=== PATIENT | female | born 1995 | race Caucasian/White ===

== ENCOUNTER 2023-09-21 17:34 | Inpatient (IN) ==
[2023-09-21] MEDS ORDERED: SODIUM CHLORIDE 0.9% 1,000 ML IV SCH (18:00)
[2023-09-21 18:06] LABS: Basophils # (auto) 0.03 K/uL (0.00-0.20); Basophils % (auto) 0.3 %; Eosinophils # (auto) 0.01 K/uL (0.00-0.50); Eosinophils % (auto) 0.1 %; Hemoglobin 14.4 g/dl (12.0-16.0); Immature Granulocytes # (auto) 0.03 K/uL (0.01-0.20); Immature Granulocytes % (auto) 0.3 %; Lymphocytes # (auto) 0.91 K/uL (1.20-3.40); Lymphocytes % (auto) 10.3 %; Mean Corpuscular Hemoglobin 28.6 pg (25.0-34.0); Mean Corpuscular Hgb Conc 34.3 g/dL (32.0-36.0); Mean Corpuscular Volume 83.5 fL (80.0-100.0); Mean Platelet Volume 10.4 fL (9.4-12.4); Monocytes # (auto) 0.31 K/uL (0.11-0.59); Monocytes % (auto) 3.5 %; Neutrophils # (auto) 7.51 K/uL (1.40-6.50); Neutrophils % (auto) 85.5 %; Platelet Count 229 K/uL (130-400); RDW Coefficient of Variation 12.5 % (11.5-14.5); RDW Standard Deviation 37.7 fL (36.4-46.3); Red Blood Count 5.03 M/uL (4.20-5.40)
[2023-09-21 18:22] LABS: Acetaminophen < 3 ug/ml (10-30); Salicylate < 3.0 mg/dl (3.0-30)
[2023-09-21 18:23] LABS: Albumin Globulin Ratio 1.7 (0.9-2); Albumin Level 4.7 gm/dl (3.4-5.0); BUN Creatinine Ratio 14.8 (10-20); Bilirubin,Total 0.3 mg/dl (0.2-1.0); Calcium 9.4 mg/dl (8.6-10.3); Creatinine Clr Calc Pharmacy 135.4 ml/min; Est GFR (Non-African American) 97.5 ml/min; Globulin 2.7 gm/dl (2.5-4.0); Potassium 3.6 mmol/L (3.5-5.1); Total Protein 7.4 gm/dl (6.0-8.3)
[2023-09-21] MEDS ORDERED: SODIUM CHLORIDE 0.9% 1,000 ML IV ONE (18:24)
[2023-09-21 18:37] LABS: Thyroid Stimulating Hormone 4.255 uIu/ml (0.300-4.500)
[2023-09-21 18:48] LABS: Appearance Urine Cloudy (Clear); Bacteria Urine Automated Negative (Negative); Bilirubin Urine Negative (Negative); Blood Urine 3+ (Negative); Color Urine Dark Yellow; Epithelial Cell Urine Auto >30 /lpf (0-5); Glucose Urine UA Negative (Negative); Ketones Urine Trace (Negative); Leukocyte Esterase Urine Negative (Negative); Nitrite Urine Negative (Negative); Protein Urine Trace (Negative); RBC Urine Automated 0-4 /hpf (0-4); Specific Gravity Urine 1.026 (1.000-1.030); Urobilinogen Urine Negative (Negative)
[2023-09-21 18:49] LABS: Magnesium 1.7 mg/dl (1.7-2.4)
[2023-09-21] MEDS ORDERED: LORazepam 1 MG/1 ML SYR ED Inj Use IV STA (19:17)
[2023-09-21 19:20] LABS: Pregnancy Test, Urine Negative (Negative)
[2023-09-21 19:26] LABS: Amphetamines+Metham, Urine Pos (Neg); Barbiturates, Urine Neg (Neg); Benzodiazepine, Urine Neg (Neg); Cocaine, Urine Neg (Neg); MDMA (Ecstacy), Urine Pos (Neg); Marijuana, Urine Pos (Neg); Methadone, Urine Neg (Neg); Opiate, Urine Neg (Neg); Phencyclidine, Urine Neg (Neg)
[2023-09-21 19:45] LABS: Cast Urine Automated 0 /lpf (0-5)
--- NOTE | 2023-09-21 20:45 | CT Scan Report ---
Exam(s): CT HEAD Without Contrast EXAM: CT Head Without Intravenous Contrast CLINICAL HISTORY: Reason for exam: seizure. TECHNIQUE: Axial computed tomography images of the head/brain without intravenous contrast. CTDI is 38.31 mGy and DLP is 546.36 mGy-cm. Automated exposure control was utilized for the study. A dose lowering technique was utilized adhering to the principles of ALARA. COMPARISON: None FINDINGS: Brain: No acute infarct or hemorrhage. No extra-axial fluid collection. No mass effect or midline shift. Ventricles and sulci: Normal. No ventriculomegaly or intraventricular hemorrhage. Bones: Normal. No bony lesion or acute fracture. Subcutaneous tissues: Normal. Sinuses: Normal. No air-fluid levels or mucosal thickening. Mastoid air cells: Normal. Orbits: Grossly unremarkable. IMPRESSION: No acute intracranial abnormality. Electronically signed by: Carmen Noriega M.D. 09/21/23 20:44 PM
--- NOTE | 2023-09-21 21:46 | Emergency Department Note ---
History of Present Illness General Chief complaint: Overdose (Intentional) Time Seen by Provider: 09/21/23 17:45 History of Present Illness Provider complaint: Overdose suicide attempt Onset (ago): hour(s) 7 28-year-old female presents emergency department after an overdose and attempted suicide. Patient reports that at 10:30 AM she took 23 tablets of her Wellbutrin 300 mg. Patient reports she had nausea and vomiting. No hematemesis coffee- ground emesis or bilious vomiting. Patient reports approximately 2 hours ago she had a seizure reports the last approximate 1 minute. Patient has a history of anxiety and depression. She denies any drug use. She denies any chance of . Home Medications Medication Instructions Recorded Confirmed Type venlafaxine 150 mg 150 mg PO QAM #30 caps 06/23/23 08/12/23 Rx capsule,extended release 24 hr (Effexor XR) bupropion HCl 300 mg 24 hr tablet, 300 mg PO QAM #30 tabs 08/10/23 08/12/23 Rx extended release (Wellbutrin XL) Allergies Allergy/AdvReac Type Severity Reaction Status Date / Time No Known Allergies Allergy Verified 08/12/23 10:52 Past Med/Surg History Medical History Strain of muscle, fascia and tendon of lower back, initial encounter Open wnd knee/leg/ankle Surgical History No pertinent past surgical history Family History Sister Anxiety Bipolar disorder Grandmother Breast cancer Mother Cervical cancer Denies family history of Ovarian cancer Prostate cancer Myocardial infarction Colorectal cancer Social History Smoking Status: Current every day smoker Tobacco Type: Cigarettes Age Started Using Tobacco: 11; Second Hand Exposure: Yes; Do You Dip or Chew Tobacco: No; Hx Alcohol Use: Yes Hx Substance Use: Yes Non-Prescribed Medications: Marijuana Preferred Language: Cuban Communication Ability: Effective 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 marital status: Current Living Situation: Spouse 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 How many Children do You have: 0 Feels Safe at Home: Yes Childhood Exposure to Second-Hand Smoke: Yes Diet: regular caffeine: Yes (coffee, tea, and soda ) Dental Care, Regularly: No Physical Activity Frequency: 1-2 Times per Week Seatbelt Use: always Sunscreen Use: No Physical Exam Vital Signs Vital Signs - 24 hr 09/21/23 17:20 09/21/23 17:20 09/21/23 17:44 Temperature 36.6 C Temperature Source Oral Pulse Rate 96 H 108 H Pulse Rhythm Regular Pulse Strength Normal Respiratory Rate 20 Respiratory Effort / Characteristics Non-Labored Spontaneous Respiratory Depth Normal Respiratory Pattern Regular Blood Pressure 131/92 Blood Pressure Mean 105 Blood Pressure Position Sitting Pulse Oximetry 94 Oxygen Delivery Method Room Air Room Air Sepsis Recent Fever Within 48 Hours No Sepsis New/Unexplained Change in Mental Status No Sepsis Action Taken by Nursing No Action Required 09/21/23 19:00 Temperature Temperature Source Pulse Rate 86 Pulse Rhythm Pulse Strength Respiratory Rate 16 Respiratory Effort / Characteristics Respiratory Depth Respiratory Pattern Blood Pressure 122/79 Blood Pressure Mean 93 Blood Pressure Position Pulse Oximetry 95 Oxygen Delivery Method Room Air Sepsis Recent Fever Within 48 Hours Sepsis New/Unexplained Change in Mental Status Sepsis Action Taken by Nursing Physical Exam GENERAL: oriented to person, place, and time. appears well-developed and well- nourished. HENT: Exam performed. - Head: Normocephalic and atraumatic. EYES: Conjunctivae and EOM are normal. Right eye exhibits no discharge. Left eye exhibits no discharge. No scleral icterus. NECK: Normal range of motion. Neck supple. No JVD present. CV: Normal rate, regular rhythm, normal heart sounds and intact distal pulses. There is no peripheral edema. Palpable radial pulses bue. PULM/CHEST: Effort normal and breath sounds normal. No respiratory distress. No stridor. no wheezes. no rales. ABD: The abdomen is soft. There is no tenderness. NEURO: Motor and sensation grossly intact. SKIN: Skin is warm and dry. He is not diaphoretic. PSYCH: Bizarre affect depressed suicidal Course Course 1744: The patient was evaluated in room A8. A complete history and physical exam was performed Cardiac monitoring: An order was placed for continuous cardiac monitoring. The monitor shows a rate of 90 with sinus rhythm interpreted by me 1821: Spoke with poison control. They recommend adding a CPK and a magnesium. Patient recommended admitting the patient overnight. They state no Keppra but benzos as needed. 2109: Patient reported to the nursing staff that she punched a wall prior to arrival is having right hand pain. X-ray ordered. 2142: Vital signs stable. Patient CT head within normal limits. Labs within normal limits. X-ray within normal limits no acute fracture or dislocation. Patient will be admitted to the [facility] team. Discussed case with VASHTI DE JESUS for Dr. Hurt. Administered Medications Discontinued Medications Sodium Chloride (Nss) 1,000 mls @ 999 mls/hr IV .Q1H1M LEIDY Stop: 09/21/23 19:00 Last Admin: 09/21/23 20:32 Dose: 999 mls/hr Documented By: CRISTI Sodium Chloride (Nss) 1,000 mls @ 999 mls/hr IV .Q1H1M ONE Stop: 09/21/23 19:24 Last Infusion: 09/21/23 20:32 Dose: Infused Documented By: Admin: 09/21/23 19:11 Dose: 999 mls/hr Documented By: CLAUDIO Lorazepam (Lorazepam 1 Mg/1 Ml Syr Ed Inj Use) 0.5 mg IV ONE STA Stop: 09/21/23 19:18 Last Admin: 09/21/23 19:22 Dose: 0.5 mg Documented By: CLAUDIO Medical Decision Making Laboratory Data Attestation: I reviewed the patient's lab results. 09/21/23 17:46 09/21/23 17:46 Lab Results 09/21/23 09/21/23 09/21/23 Range/Units 17:46 19:08 Unknown WBC 8.80 (4.8-10.8) K/ul RBC 5.03 (4.20-5.40) M/uL Hgb 14.4 (12.0-16.0) g/dl Hct 42.0 (37.0-47.0) % MCV 83.5 (80.0-100.0) fL MCH 28.6 (25.0-34.0) pg MCHC 34.3 (32.0-36.0) g/dL RDW Std Deviation 37.7 (36.4-46.3) fL RDW Coeff of Maddy 12.5 (11.5-14.5) % Plt Count 229 (130-400) K/uL MPV 10.4 (9.4-12.4) fL Immature Gran % (Auto) 0.3 % Neut % (Auto) 85.5 % Lymph % (Auto) 10.3 % [place] % (Auto) 3.5 % Eos % (Auto) 0.1 % Baso % (Auto) 0.3 % Neut # (Auto) 7.51 H (1.40-6.50) K/uL Lymph # (Auto) 0.91 L (1.20-3.40) K/uL [place] # (Auto) 0.31 (0.11-0.59) K/uL Eos # (Auto) 0.01 (0.00-0.50) K/uL Baso # (Auto) 0.03 (0.00-0.20) K/uL Immature Gran # (Auto) 0.03 (0.01-0.20) K/uL Sodium 140 (136-145) mmol/L Potassium 3.6 (3.5-5.1) mmol/L Chloride 106 (98-107) mmol/L Carbon Dioxide 25 (21-32) mmol/L Anion Gap 9 (3-11) BUN 12 (6-23) mg/dl Creatinine 0.81 (0.6-1.2) mg/dl Est Cr Clr Drug Dosing 135.4 ml/min Est GFR ( Amer) 113.0 ml/min Est GFR (Non-Af Amer) 97.5 ml/min BUN/Creatinine Ratio 14.8 (10-20) Glucose 166 H (70-99(Fasting)) mg/dl Calcium 9.4 (8.6-10.3) mg/dl Magnesium 1.7 (1.7-2.4) mg/dl Total Bilirubin 0.3 (0.2-1.0) mg/dl AST 14 (13-39) U/L ALT 11 (7-52) U/L Alkaline Phosphatase 49 (34-104) U/L Total Creatine Kinase 61 (26-192) U/L Total Protein 7.4 (6.0-8.3) gm/dl Albumin 4.7 (3.4-5.0) gm/dl Globulin 2.7 (2.5-4.0) gm/dl Albumin/Globulin Ratio 1.7 (0.9-2) TSH 4.255 (0.300-4.500) uIu/ml Urine Color Dark Yellow Urine Appearance Cloudy A (Clear) Urine pH 5.0 (4.5-7.5) Ur Specific [place] 1.026 (1.000-1.030) Urine Protein Trace H (Negative) Urine Glucose (UA) Negative (Negative) Urine Ketones Trace H (Negative) Urine Blood 3+ H (Negative) Urine Nitrite Negative (Negative) Urine Bilirubin Negative (Negative) Urine Urobilinogen Negative (Negative) Ur Leukocyte Esterase Negative (Negative) Urine WBC (Auto) 1-5 (0-5) /hpf Urine RBC (Auto) 0-4 (0-4) /hpf U Hyaline Cast (Auto) 0 (0-5) /lpf U Epithel Cells (Auto) >30 H (0-5) /lpf Urine Bacteria (Auto) Negative (Negative) Urine Yeast Not Reportable Urine Test Negative (Negative) Salicylates < 3.0 L (3.0-30) mg/dl Urine Opiates Screen Neg (Neg) Ur Methadone, Qual Neg (Neg) Acetaminophen < 3 L (10-30) ug/ml Urine Barbiturates Neg (Neg) Ur Phencyclidine (PCP) Neg (Neg) U Amphetamin/Meth Scrn Pos H (Neg) MDMA (Ecstasy) Screen Pos H (Neg) U Benzodiazepines Scrn Neg (Neg) Ur Cocaine Metabolite Neg (Neg) U Marijuana (THC) Screen Pos H (Neg) Ethyl Alcohol mg/dL < 10.0 (<10.0) mg/dl SARS-CoV-2, RNA, NAAT NEGATIVE (NEGATIVE) Imaging Data Attestation: I personally reviewed and interpreted this imaging study as follows: My Impression: Right hand x-ray: No acute fracture or dislocation Radiologist's Impression: Head CT 09/21/23 18:19 Exam(s): CT HEAD Without Contrast EXAM: CT Head Without Intravenous Contrast CLINICAL HISTORY: Reason for exam: seizure. TECHNIQUE: Axial computed tomography images of the head/brain without intravenous contrast. CTDI is 38.31 mGy and DLP is 546.36 mGy-cm. Automated exposure control was utilized for the study. A dose lowering technique was utilized adhering to the principles of ALARA. COMPARISON: None FINDINGS: Brain: No acute infarct or hemorrhage. No extra-axial fluid collection. No mass effect or midline shift. Ventricles and sulci: Normal. No ventriculomegaly or intraventricular hemorrhage. Bones: Normal. No bony lesion or acute fracture. Subcutaneous tissues: Normal. Sinuses: Normal. No air-fluid levels or mucosal thickening. Mastoid air cells: Normal. Orbits: Grossly unremarkable. IMPRESSION: No acute intracranial abnormality. Electronically signed by: Carmen Noriega M.D. 09/21/23 20:44 PM ECG Data Attestation: I personally reviewed and interpreted this ECG as follows: Additional Comments: EKG #1 at 1755: Sinus rhythm with a rate of 99. CO 150 QRS [address] elevation or ST depression. EKG #2 at 2110: Sinus rhythm with a rate of 87. CO 152 QRS [address] elevation or ST depression. [facility] Narrative 174: The patient was evaluated in room A8. A complete history and physical exam was performed Cardiac monitoring: An order was placed for continuous cardiac monitoring. The monitor shows a rate of 90 with sinus rhythm interpreted by me 1820: Spoke with poison control. They recommend adding a CPK and a magnesium. Patient recommended admitting the patient overnight. They state no Keppra but benzos as needed. 2109: Patient reported to the nursing staff that she punched a wall prior to arrival is having right hand pain. X-ray ordered. 2142: Vital signs stable. Patient CT head within normal limits. Labs within normal limits. X-ray within normal limits no acute fracture or dislocation. Patient will be admitted to the [facility] Hospitalist team. Discussed case with VASHTI DE JESUS for Dr. Hurt. Impression & Plan Suicide attempt by other psychotropic drug overdose Discharge Plan Visit Data Chief Complaint: Overdose (Intentional) ED Provider: Shamir Leslie Discharge Problem: Suicide attempt by other psychotropic drug overdose Patient Disposition: Admitted As Inpatient Forms Stand Alone Forms: My [facility], Suicide Prevention Resources Prescriptions Prescriptions: No Action venlafaxine [Effexor XR] 150 mg capsule,extended release 24hr 150 mg PO QAM Qty: 30 2RF bupropion HCl [Wellbutrin XL] 300 mg tablet extended release 24 hr 300 mg PO QAM Qty: 30 2RF Referrals Referrals: Amie Cole MD [Primary Care Provider] - Discharge Problem: Suicide attempt by other psychotropic drug overdose Qualifiers: Encounter type: initial encounter Qualified Code(s): T43.8X2A - Poisoning by other psychotropic drugs, intentional self-harm, initial encounter
[2023-09-21] MEDS ORDERED: POTASSIUM CHLORIDE / WTR 10 MEQ/100 ML PLCT IV ONE (22:15)
--- NOTE | 2023-09-21 22:15 | History & Physical Report ---
Date of Service September 21, 2023 Assessment & Plan (1) Intentional overdose: Plan: Suicide attempt; patient intentionally took Wellbutrin 300mg p.o. x 23 tablets (6900mg total) the morning of 09/21 Patient then experienced a seizure at home, and vomited No prior hx of seizures Hx of suicide attempt on trazodone 6 months ago EKG on arrival showed NSR at 87 bpm; QTc 471 Glucose at 166 on arrival Repeat EKGs ordered Head CT NAF Urine test negative Tox screen positive for marijuana and MDMA (expected with Wellbutrin); negative for alcohol, acetaminophen, or salicylates Seizure precautions 1:1 suicide precations Lorazepam 2 mg IV q5m x 2 max doses as needed for seizures lasting >3min Monitor electrolytes; maintain K>4, Mag>2 Magnesium sulfate x 2g given in the ED; K rider 10mEq Psychiatry consulted A.m. CBC, BMP, mag (2) Depression: Plan: Hold Wellbutrin, venlafaxine (3) Tobacco use: Plan: Current everyday tobacco cigarette smoker; 1 PPD Patient also endorses vaping and using marijuana (4) Right hand pain: Plan: Patient reportedly punched a wall following overdose Denies R hand pain at time of admission Right hand x-ray ordered, pending Plan Disposition: Admit to [facility] telemetry Full code Regular diet, safe tray 1:1 observation VTE PPx: Will defer for now History of Present Illness Chief Complaint: Intentional overdose Primary Care Provider: Amie Cole MD Gabrielle is a 28-year-old male with PMH of anxiety, depression, and prior suicide attempt. She presented for an intentional Wellbutrin overdose on 09/21. She reportedly took 23 tablets of her 300 mg Wellbutrin (total 6900 mg) at 1030 on the morning of 09/21 and punched her right hand against a wall. Follow overdose, she reportedly had 1 seizure prior to EMS arrival with 1 episode of emesis. No hx of prior seizures. She reports that she does not know what triggered her to go off this morning; she reports a hx of explosive behaviors, and is not sure what triggered her to take the remainder of her Wellbutrin, and punch her hands against the wall. Patient reports that this is her second suicide attempt; the first was 6 months ago on trazodone, but she reportedly threw up the trazodone after ingestion. She denies ingesting any other drugs. She endorses marijuana use, tobacco cigarette smoking; 1 PPD; and occasionally vaping. She denies alcohol use and recreational drug use. She denies nausea, and pain in her right hand at present. She reports that she urinated once in the ED without difficulty. She reports that she lives with her and 2 dogs. She reports that she used to have firearms in the house, but after speaking with her , and telling him that she is not okay, her brought the firearms to his parent's house. Vital stable at time of admission. ED course: Lorazepam 0.5 mg IV NSS 1000 mL bolus x 2 ROS: Patient endorses nausea (which has resolved). Patient denies headache, fevers, chills, night sweats, chest pain, SOB, abdominal pain, urinary s/s, or numbness/tingling going down her legs. Allergies Allergy/AdvReac Type Severity Reaction Status Date / Time No Known Allergies Allergy Verified 08/12/23 10:52 Home Medications Medication Instructions Recorded Confirmed Type venlafaxine 150 mg 150 mg PO QAM #30 caps 06/23/23 09/21/23 Rx capsule,extended release 24 hr (Effexor XR) bupropion HCl 300 mg 24 hr tablet, 300 mg PO QAM #30 tabs 08/10/23 09/21/23 Rx extended release (Wellbutrin XL) Past Med/Surg History Medical History Intentional overdose Strain of muscle, fascia and tendon of lower back, initial encounter Open wnd knee/leg/ankle Surgical History No pertinent past surgical history Family History Sister Anxiety Bipolar disorder Grandmother Breast cancer Mother Cervical cancer Denies family history of Ovarian cancer Prostate cancer Myocardial infarction Colorectal cancer Social History Smoking Status: Current every day smoker Tobacco Type: Cigarettes Age Started Using Tobacco: 11; Second Hand Exposure: No; Do You Dip or Chew Tobacco: No; Tobacco Cessation Education Requested by Patient: No Hx Alcohol Use: Yes Alcohol type: hard liquor Hx Substance Use: Yes Non-Prescribed Medications: Marijuana Preferred Language: Bahamian Communication Ability: Effective Manager Willow Required: No Beliefs That Will Affect Care: None marital status: Current Living Situation: Family 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 How many Children do You have: 0 Other Information That Helps Us Care for You: No Feels Safe at Home: Yes Safety Concerns: Feels Safe At This Time Childhood Exposure to Second-Hand Smoke: Yes Diet: regular caffeine: Yes (coffee, tea, and soda ) Dental Care, Regularly: No Physical Activity Frequency: 1-2 Times per Week Seatbelt Use: always Sunscreen Use: No Assistive Devices: None Review of Systems Review of Systems: See HPI above Physical Exam Physical Exam: General: no acute distress; non-toxic appearing; well-nourished; cooperative HEENT: normocephalic, atraumatic; no scleral icterus; PERRLA w/ EOMs intact; moist mucus membrane; vision and hearing grossly intact Neck: supple; no lymphadenopathy; trachea midline Skin: warm, dry without signs of tenting; no cyanosis; no rashes, bruising, lesions, or erythema noted CV: chest wall NTP; RRR; S1/S2 normal; no murmurs/rubs/gallops; pulses intact and symmetric at radial, DP, and PT Lungs: no acute respiratory distress; symmetrical chest wall expansion; clear breath sounds across all lung bryant w/o adventitious sounds; no wheezing ABD: Soft, NTP; BS present; no rebound/guarding; no ascites; no distention; negative CVA tenderness MSK: no tics or fasciculations; no edema noted in the LEs b/l, nonerythematous; right hand mildly swollen at the fifth digit MCP, with mild erythema Neuro: A&Ox3; normal mood and affect; fluent speech; no focal deficits; s ensation grossly intact Results & Data Results & Data Vital Signs (Past 12 Hours) Vital Signs Temp Pulse Resp BP Pulse Ox O2 Del Method 09/21/23 22:00 84 20 98 09/21/23 22:00 123/80 09/21/23 21:59 81 09/21/23 21:45 124/73 09/21/23 21:45 85 19 99 09/21/23 21:30 78 23 100 09/21/23 21:30 122/82 09/21/23 21:15 82 24 99 09/21/23 21:15 139/101 H 09/21/23 21:00 121/74 09/21/23 21:00 84 17 98 09/21/23 20:45 99/66 L 09/21/23 20:45 80 20 99 09/21/23 20:30 125/70 09/21/23 20:30 91 H 17 100 09/21/23 20:15 113/73 09/21/23 20:15 80 20 99 09/21/23 20:05 85 16 09/21/23 20:05 125/73 09/21/23 19:30 88 19 99 09/21/23 19:00 86 16 122/79 95 Room Air 09/21/23 17:44 108 H 09/21/23 17:20 Room Air 09/21/23 17:20 36.6 C 96 H 20 131/92 94 Room Air Laboratory Results Abnormal lab results 09/21/23 09/21/23 Range/Units 17:46 Unknown Neut # (Auto) 7.51 H (1.40-6.50) K/uL Lymph # (Auto) 0.91 L (1.20-3.40) K/uL Glucose 166 H (70-99(Fasting)) mg/dl Urine Appearance Cloudy A (Clear) Urine Protein Trace H (Negative) Urine Ketones Trace H (Negative) Urine Blood 3+ H (Negative) U Epithel Cells (Auto) >30 H (0-5) /lpf Salicylates < 3.0 L (3.0-30) mg/dl Acetaminophen < 3 L (10-30) ug/ml U Amphetamin/Meth Scrn Pos H (Neg) MDMA (Ecstasy) Screen Pos H (Neg) U Marijuana (THC) Screen Pos H (Neg) Diagnostic Findings Head CT 09/21/23 18:19 Exam(s): CT HEAD Without Contrast EXAM: CT Head Without Intravenous Contrast CLINICAL HISTORY: Reason for exam: seizure. TECHNIQUE: Axial computed tomography images of the head/brain without intravenous contrast. CTDI is 38.31 mGy and DLP is 546.36 mGy-cm. Automated exposure control was utilized for the study. A dose lowering technique was utilized adhering to the principles of ALARA. COMPARISON: None FINDINGS: Brain: No acute infarct or hemorrhage. No extra-axial fluid collection. No mass effect or midline shift. Ventricles and sulci: Normal. No ventriculomegaly or intraventricular hemorrhage. Bones: Normal. No bony lesion or acute fracture. Subcutaneous tissues: Normal. Sinuses: Normal. No air-fluid levels or mucosal thickening. Mastoid air cells: Normal. Orbits: Grossly unremarkable. IMPRESSION: No acute intracranial abnormality. Electronically signed by: Carmen Noriega M.D. 09/21/23 20:44 PM Code Status & VTE Plan Code Status Full code VTE Prophylaxis Plan VTE Prophylaxis will be ordered: Yes Supervising Physician Co-Signing Physician Notes Attending addendum: I have physically seen this patient, have supervised the MONIKA's activities, and agree with the H&P unless as otherwise noted. Assessment and Plan: Intentional overdose with Wellbutrin/depression- UDS positive for amphetamine/methamphetamine, MDMA and marijuana MDMA likely secondary to Wellbutrin Admit to monitored bed monitor for arrhythmia One-to-one suicide precautions Consult psychiatry Follow serial laboratories Hold Wellbutrin and venlafaxine Tobacco use disorder- 1 PPD daily Also utilizes vaping and marijuana and marijuana Tobacco cessation counseling Remaining orders and notations as noted PG Care Time/CCT Total # of Minutes Spent Total Time Spent with Patient: Total time spent is greater than 50% in coordination of care (as documented) at patient's floor/unit and/or counseling patient: C[place] [address] INT INP/OBS CARE 2/55MIN Patient Type Established Medical Decision Making Low Complexity Diagnoses Intentional overdose T50.902A Depression F32.A Tobacco use Z72.0 Right hand pain M79.641
[2023-09-21] MEDS: MAGNESIUM SULFATE / D5W 1 GM/100 ML BAG IV SCH (22:32)
[2023-09-21] MEDS ORDERED: ACETAMINOPHEN 325 MG TAB PO PRN (22:40)
[2023-09-21] MEDS ORDERED: LORazepam 2 MG in SYRINGE 1 ML IV PRN (22:40)
[2023-09-22] MEDS: MAGNESIUM SULFATE / D5W 1 GM/100 ML BAG IV SCH (00:22)
--- NOTE | 2023-09-22 07:44 | XRay Report ---
RIGHT HAND 3 VIEWS CLINICAL HISTORY: Right hand injury. The patient punched a wall. FINDINGS: 3 views of the right hand are obtained. No prior studies are available for comparison at th e time of dictation. The skeletal structures are well mineralized. No fracture is seen. The joint spa teresa are maintained. There is negative ulnar variance. Mild dorsal soft tissue swelling is observed. IMPRESSION: No fracture is identified. Electronically signed by: Anurag Garner M.D. 09/22/2023 7:42 AM
[2023-09-22 08:15] LABS: Basophils # (auto) 0.02 K/uL (0.00-0.20); Basophils % (auto) 0.3 %; Eosinophils # (auto) 0.02 K/uL (0.00-0.50); Eosinophils % (auto) 0.3 %; Hematocrit (blood only) 35.2 % (37.0-47.0); Immature Granulocytes # (auto) 0.01 K/uL (0.01-0.20); Immature Granulocytes % (auto) 0.2 %; Lymphocytes # (auto) 1.25 K/uL (1.20-3.40); Mean Corpuscular Hemoglobin 28.5 pg (25.0-34.0); Mean Corpuscular Hgb Conc 34.1 g/dL (32.0-36.0); Mean Corpuscular Volume 83.6 fL (80.0-100.0); Mean Platelet Volume 10.4 fL (9.4-12.4); Monocytes # (auto) 0.35 K/uL (0.11-0.59); Monocytes % (auto) 5.3 %; Neutrophils # (auto) 4.94 K/uL (1.40-6.50); Neutrophils % (auto) 74.9 %; Platelet Count 207 K/uL (130-400); Red Blood Count 4.21 M/uL (4.20-5.40); White Blood Count 6.59 K/ul (4.8-10.8)
[2023-09-22 08:34] LABS: BUN Creatinine Ratio 10.1 (10-20); Calcium 8.6 mg/dl (8.6-10.3); Est GFR (African American) 135.4 ml/min; Est GFR (Non-African American) 116.8 ml/min; Magnesium 2.2 mg/dl (1.7-2.4); Potassium 3.7 mmol/L (3.5-5.1)
[2023-09-22] MEDS ORDERED: ONDANSETRON INJ 2 MG/ML 2 ML VIAL IV STA (09:11)
[2023-09-22] MEDS ORDERED: ONDANSETRON INJ 2 MG/ML 2 ML VIAL IV PRN (09:14)
[2023-09-22] MEDS ORDERED: MoRPHine SULFATE 2 MG/ML CARP IV PRN (09:16)
--- NOTE | 2023-09-22 13:39 | Electrocardiogram Report ---
Test Reason : Blood Pressure : / mmHG Vent. Rate : 099 BPM Atrial Rate : 099 BPM P-R Int : 150 ms QRS Dur : 102 ms QT Int : 384 ms P-R-T Axes : 058 -66 037 degrees QTc Int : 492 ms Normal sinus rhythm Possible Left atrial enlargement Incomplete right bundle branch block Left anterior fascicular block Prolonged QT Abnormal ECG No previous ECGs available Confirmed by Atul Marcum ([id number]) on 09/22/2023 1:38:33 PM Referred By: REFERRED SELF Confirmed By:Atul Marcum
--- NOTE | 2023-09-22 13:43 | Electrocardiogram Report ---
Test Reason : Blood Pressure : / mmHG Vent. Rate : 087 BPM Atrial Rate : 087 BPM P-R Int : 152 ms QRS Dur : 098 ms QT Int : 392 ms P-R-T Axes : 069 -57 016 degrees QTc Int : 471 ms Normal sinus rhythm Incomplete right bundle branch block Left anterior fascicular block Poor R wave progression, consider anterior MA vs. lead placement vs. LVH Abnormal ECG When compared with ECG of 21-SEP-2023 17:55, (unconfirmed) No significant change was found Confirmed by Atul Marcum ([id number]) on 09/22/2023 1:43:05 PM Referred By: REFERRED SELF Confirmed By:Atul Marcum
--- NOTE | 2023-09-22 15:03 | Electrocardiogram Report ---
Test Reason : Blood Pressure : / mmHG Vent. Rate : 083 BPM Atrial Rate : 083 BPM P-R Int : 138 ms QRS Dur : 104 ms QT Int : 404 ms P-R-T Axes : 052 -50 029 degrees QTc Int : 474 ms Normal sinus rhythm RSR' or QR pattern in V1 suggests right ventricular conduction delay Left anterior fascicular block Abnormal ECG When compared with ECG of 21-SEP-2023 21:11, No significant change was found Confirmed by Atul Marcum ([id number]) on 09/22/2023 3:03:15 PM Referred By: REFERRED SELF Confirmed By:Atul Marcum
--- NOTE | 2023-09-22 16:59 | Psychiatric Consultation ---
Date of Consultation September 22, 2023 Impression / Recommendations Impression 28 yo female with hx of prior suicide attempt (newly disclosed), remote hx of opiate abuse, recent escalation to punching wells, likely complex trauma hx presents s/p Wellbutrin OD with seizure. (1) Suicide attempt by other psychotropic drug overdose: Encounter type: initial encounter Qualified Code(s): T43.8X2A - Poisoning by other psychotropic drugs, intentional self-harm, initial encounter (2) Opioid use disorder in remission: (3) Depression: (4) Right hand pain: Plan continue to hold psych meds continue 1 on 1 obs for safety inpatient psychiatric care is recommended, likely 201 but patient is not able to leave the hospital AMA. If attempts to leave before medically cleared for transfer, obtain 302 warrant. CPT Code Overall, I spent a total of 57 minutes with this case, including review of chart, direct evaluation of the patient, counseling the patient, coordination with nursing, risk assessment, and documentation. Psych History Identifying Data 28 yo female from [place]. presented to ED 09/21 following intentional OD on Wellbutrin and subsequent seizure. Chief Complaint "I remember everything but the seizure". History of Present Illness Patient currently lying in dark room with significant N so didn't elaborate much. Confirmed hx as generally outlined in chart/liaison. Patient admitted taking 23 tabs of 300 mg Wellbutrin and remains ambivalent about her attempt. She also punched a wall. She told liaison took OD of trazodone approximately 6 months ago and didn't tell/seek treatment. She feels overall she has done well on Effexor XR and is aware it is currently held due to her OD and abrupt discontinuation/missed doses can result in discontinuation syndrome. reportedly taking his firearms to a family members house and is supportive of treatment. alludes to "drama" within family, kasey doesn't speak with mother and sister reportedly bipolar and/or in recovery. 7 sibs total and no contact with any. trauma hx of "sexual emotional" no outpatient services, no inpatient care hx occasional MJ, MJ use daily, hx of opiod abuse 10 or more years ago seems to be minimizing, did score 9 on PHQ-9 with 1 on #9. Main symptoms are feeling down and having little energy. Allergies Allergy/AdvReac Type Severity Reaction Status Date / Time No Known Allergies Allergy Verified 08/12/23 10:52 Home Medications Medication Instructions Recorded Confirmed Type venlafaxine 150 mg 150 mg PO QAM #30 caps 06/23/23 09/21/23 Rx capsule,extended release 24 hr (Effexor XR) bupropion HCl 300 mg 24 hr tablet, 300 mg PO QAM #30 tabs 08/10/23 09/21/23 Rx extended release (Wellbutrin XL) Patient History Medical History Intentional overdose Strain of muscle, fascia and tendon of lower back, initial encounter Open wnd knee/leg/ankle Surgical History No pertinent past surgical history Family History Sister Anxiety Bipolar disorder Grandmother Breast cancer Mother Cervical cancer Denies family history of Ovarian cancer Prostate cancer Myocardial infarction Colorectal cancer Social History Smoking Status: Current every day smoker Tobacco Type: Cigarettes Age Started Using Tobacco: 11; Second Hand Exposure: No; Do You Dip or Chew Tobacco: No; Tobacco Cessation Education Requested by Patient: No Hx Alcohol Use: Yes Alcohol type: hard liquor Hx Substance Use: Yes Non-Prescribed Medications: Marijuana Preferred Language: Israeli Communication Ability: Effective 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: No Beliefs That Will Affect Care: None marital status: Current Living Situation: Family 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 How many Children do You have: 0 Other Information That Helps Us Care for You: No Feels Safe at Home: Yes Safety Concerns: Feels Safe At This Time Childhood Exposure to Second-Hand Smoke: Yes Diet: regular caffeine: Yes (coffee, tea, and soda ) Dental Care, Regularly: No Physical Activity Frequency: 1-2 Times per Week Seatbelt Use: always Sunscreen Use: No Assistive Devices: None Physical Exam Psychiatric: Orientation: alert and oriented x 3 Apperance: appropriately dressed and appropriately groomed Eye Contact: + fair eye contact Motor Behavior: no abnormal motor movements Speech: + abnormal rate/rhythm/volume of speech nonspontaneous Affect: + depressed affect Mood: + depressed mood Thought Process: linear/logical thought process Thought Content: reality based without delusions Suicidal Thoughts: + reports suicidal thoughts (in form of ambivalence re: attempt) Homicidal Thoughts: denies homicidal thoughts Hallucinations: no auditory hallucinations and no visual hallucinations Cognition: attention grossly intact and language grossly intact Estimated Intelligence: consistent with education level Insight: + limited insight Judgment: + limited judgement Vital Signs (Past 24 Hours): Last Vital Signs Temp 37 C 09/21/23 22:46 Pulse 78 09/22/23 16:03 Resp 15 09/22/23 16:03 BP 133/78 09/22/23 16:03 Pulse Ox 100 09/22/23 16:03 O2 Del Method Room Air 09/22/23 12:38 Review of Systems All systems reviewed & are unremarkable except as noted in HPI & below Results & Data (PSY) Laboratory Results Microbiology 09/21/23 Unknown Urine,Clean Catch Urine Culture - Preliminary Pin-point growth present, reincubating. Labs 09/21/23 09/21/23 09/21/23 17:46 19:08 Unknown WBC 8.80 RBC 5.03 Hgb 14.4 Hct 42.0 MCV 83.5 MCH 28.6 MCHC 34.3 RDW Std Deviation 37.7 RDW Coeff of Maddy 12.5 Plt Count 229 MPV 10.4 Immature Gran % (Auto) 0.3 Neut % (Auto) 85.5 Lymph % (Auto) 10.3 [place] % (Auto) 3.5 Eos % (Auto) 0.1 Baso % (Auto) 0.3 Neut # (Auto) 7.51 H Lymph # (Auto) 0.91 L [place] # (Auto) 0.31 Eos # (Auto) 0.01 Baso # (Auto) 0.03 Immature Gran # (Auto) 0.03 Sodium 140 Potassium 3.6 Chloride 106 Carbon Dioxide 25 Anion Gap 9 BUN 12 Creatinine 0.81 Est Cr Clr Drug Dosing 135.4 Est GFR ( Amer) 113.0 Est GFR (Non-Af Amer) 97.5 BUN/Creatinine Ratio 14.8 Glucose 166 H Calcium 9.4 Magnesium 1.7 Total Bilirubin 0.3 AST 14 ALT 11 Alkaline Phosphatase 49 Total Creatine Kinase 61 Total Protein 7.4 Albumin 4.7 Globulin 2.7 Albumin/Globulin Ratio 1.7 TSH 4.255 Urine Color Dark Yellow Urine Appearance Cloudy A Urine pH 5.0 Ur Specific [place] 1.026 Urine Protein Trace H Urine Glucose (UA) Negative Urine Ketones Trace H Urine Blood 3+ H Urine Nitrite Negative Urine Bilirubin Negative Urine Urobilinogen Negative Ur Leukocyte Esterase Negative Urine WBC (Auto) 1-5 Urine RBC (Auto) 0-4 U Hyaline Cast (Auto) 0 U Epithel Cells (Auto) >30 H Urine Bacteria (Auto) Negative Urine Yeast Not Reportable Urine Test Negative Salicylates < 3.0 L Urine Opiates Screen Neg Ur Methadone, Qual Neg Acetaminophen < 3 L Urine Barbiturates Neg Ur Phencyclidine (PCP) Neg U Amphetamin/Meth Scrn Pos H MDMA (Ecstasy) Screen Pos H U Benzodiazepines Scrn Neg Ur Cocaine Metabolite Neg U Marijuana (THC) Screen Pos H Ethyl Alcohol mg/dL < 10.0 SARS-CoV-2, RNA, NAAT NEGATIVE 09/22/23 07:51 WBC 6.59 RBC 4.21 Hgb 12.0 Hct 35.2 L MCV 83.6 MCH 28.5 MCHC 34.1 RDW Std Deviation 39.0 RDW Coeff of Maddy 13.0 Plt Count 207 MPV 10.4 Immature Gran % (Auto) 0.2 Neut % (Auto) 74.9 Lymph % (Auto) 19.0 [place] % (Auto) 5.3 Eos % (Auto) 0.3 Baso % (Auto) 0.3 Neut # (Auto) 4.94 Lymph # (Auto) 1.25 [place] # (Auto) 0.35 Eos # (Auto) 0.02 Baso # (Auto) 0.02 Immature Gran # (Auto) 0.01 Sodium 142 Potassium 3.7 Chloride 112 H Carbon Dioxide 25 Anion Gap 5 BUN 7 Creatinine 0.69 Est Cr Clr Drug Dosing 159.0 Est GFR ( Amer) 135.4 Est GFR (Non-Af Amer) 116.8 BUN/Creatinine Ratio 10.1 Glucose 100 H Calcium 8.6 Magnesium 2.2 Total Bilirubin AST ALT Alkaline Phosphatase Total Creatine Kinase Total Protein Albumin Globulin Albumin/Globulin Ratio TSH Urine Color Urine Appearance Urine pH Ur Specific [place] Urine Protein Urine Glucose (UA) Urine Ketones Urine Blood Urine Nitrite Urine Bilirubin Urine Urobilinogen Ur Leukocyte Esterase Urine WBC (Auto) Urine RBC (Auto) U Hyaline Cast (Auto) U Epithel Cells (Auto) Urine Bacteria (Auto) Urine Yeast Urine Test Salicylates Urine Opiates Screen Ur Methadone, Qual Acetaminophen Urine Barbiturates Ur Phencyclidine (PCP) U Amphetamin/Meth Scrn MDMA (Ecstasy) Screen U Benzodiazepines Scrn Ur Cocaine Metabolite U Marijuana (THC) Screen Ethyl Alcohol mg/dL SARS-CoV-2, RNA, NAAT Diagnostic Findings serial EKG per tox Medications Administered Morphine Sulfate (Morphine Sulfate 2 Mg/Ml Carp) 2 mg IV Q4H PRN PRN Reason: Pain Stop: 10/06/23 09:15 Last Admin: 09/22/23 09:26 Dose: 2 mg Documented By: BENJAMIN Coding Level of Care Code 86870 [facility] Intl Hosp Care Lvl 2 Diagnoses Suicide attempt by other psychotropic drug overdose T43.8X2A Encounter type: initial encounter Opioid use disorder in remission F11.91 Depression F32.A Right hand pain M79.641
[2023-09-22] MEDS: ALPRAZolam 0.5 MG TABLET PO PRN (17:00)
[2023-09-23 08:10] LABS: Basophils # (auto) 0.02 K/uL (0.00-0.20); Basophils % (auto) 0.4 %; Eosinophils # (auto) 0.07 K/uL (0.00-0.50); Eosinophils % (auto) 1.2 %; Hematocrit (blood only) 39.2 % (37.0-47.0); Hemoglobin 13.4 g/dl (12.0-16.0); Immature Granulocytes # (auto) 0.02 K/uL (0.01-0.20); Immature Granulocytes % (auto) 0.4 %; Lymphocytes # (auto) 1.86 K/uL (1.20-3.40); Lymphocytes % (auto) 33.2 %; Mean Corpuscular Hemoglobin 28.8 pg (25.0-34.0); Mean Corpuscular Hgb Conc 34.2 g/dL (32.0-36.0); Mean Corpuscular Volume 84.1 fL (80.0-100.0); Mean Platelet Volume 10.5 fL (9.4-12.4); Monocytes # (auto) 0.39 K/uL (0.11-0.59); Neutrophils # (auto) 3.25 K/uL (1.40-6.50); Neutrophils % (auto) 57.8 %; Platelet Count 223 K/uL (130-400); RDW Coefficient of Variation 13.1 % (11.5-14.5); RDW Standard Deviation 39.9 fL (36.4-46.3); Red Blood Count 4.66 M/uL (4.20-5.40); White Blood Count 5.61 K/ul (4.8-10.8)
[2023-09-23 08:28] LABS: BUN Creatinine Ratio 9.2 (10-20); Calcium 9.2 mg/dl (8.6-10.3); Creatinine Clr Calc Pharmacy 126.1 ml/min; Est GFR (African American) 103.6 ml/min; Est GFR (Non-African American) 89.4 ml/min; Potassium 3.9 mmol/L (3.5-5.1)
[2023-09-23] MEDS: ALPRAZolam 0.5 MG TABLET PO PRN (14:02)
--- NOTE | 2023-09-23 18:01 | Psychiatric Progress Note ---
Date of Service September 23, 2023 Impression / Recommendations Impression 28 yo female with hx of prior suicide attempt (newly disclosed), remote hx of opiate abuse, recent escalation to punching wells, likely complex trauma hx presents s/p Wellbutrin OD with seizure. (1) Suicide attempt by other psychotropic drug overdose: (2) Opioid use disorder in remission: (3) Depression: (4) Right hand pain: Plan admit to 3S. Overall, I spent a total of 68 minutes with this case, including review of chart, direct evaluation of the patient, counseling the patient, coordination with nursing, risk assessment, and documentation. Interval History Identifying Information 28 yo female from [place]. presented to ED 09/21 following intentional OD on Wellbutrin and subsequent seizure. Patient boarding in ED given hospital census/tele and availability. Chief Complaint "so the difference is I want therapy now, I even called, my is leaving for work and need dogs". Subjective Subjective Patient was seen & assessed and interval progress reviewed with nursing. Patient is frustrated with ongoing confinement in ED, waffling on inpatient psych recommendation and noted a variety of supports. Reviewed that she OD despite these and has not yet met with , identified an aftercare provider, and this is 2nd attempt in 6 months. Reinforced that not yet on psych unit as was awaiting medical clearance. Patient's repeat covid was initially delayed. Patient was agreeable to stay overnight for additional safety/aftercare planning but after I left ED was telling nursing wanted to leave AMA. Liaison met with patient and agreeable to 201. Physical Exam Psychiatric Orientation: alert and oriented x 3 Apperance: appropriately dressed and appropriately groomed Eye Contact: + fair eye contact Motor Behavior: no abnormal motor movements Speech: + abnormal rate/rhythm/volume of speech Affect: + depressed affect Mood: + depressed mood Thought Process: linear/logical thought process Thought Content: reality based without delusions Suicidal Thoughts: denies suicidal thoughts Homicidal Thoughts: denies homicidal thoughts Hallucinations: no auditory hallucinations and no visual hallucinations Cognition: attention grossly intact and language grossly intact Estimated Intelligence: consistent with education level Insight: + limited insight Judgment: + limited judgement Vital Signs (Past 24 Hours) Last Vital Signs Temp 37 C 09/21/23 22:46 Pulse 85 09/23/23 11:19 Resp 13 09/23/23 11:19 BP 143/82 H 09/23/23 11:19 Pulse Ox 99 09/23/23 11:19 O2 Del Method Room Air 09/23/23 11:19 Results & Data ([facility] [[email or web address] Laboratory Results Laboratory Results - last 24 hr 09/23/23 09/23/23 09/23/23 07:29 13:04 17:15 WBC 5.61 RBC 4.66 Hgb 13.4 Hct 39.2 MCV 84.1 MCH 28.8 MCHC 34.2 RDW Std Deviation 39.9 RDW Coeff of Maddy 13.1 Plt Count 223 MPV 10.5 Immature Gran % (Auto) 0.4 Neut % (Auto) 57.8 Lymph % (Auto) 33.2 [place] % (Auto) 7.0 Eos % (Auto) 1.2 Baso % (Auto) 0.4 Neut # (Auto) 3.25 Lymph # (Auto) 1.86 [place] # (Auto) 0.39 Eos # (Auto) 0.07 Baso # (Auto) 0.02 Immature Gran # (Auto) 0.02 Sodium 143 Potassium 3.9 Chloride 109 H Carbon Dioxide 28 Anion Gap 6 BUN 8 Creatinine 0.87 Est Cr Clr Drug Dosing 126.1 Est GFR ( Amer) 103.6 Est GFR (Non-Af Amer) 89.4 BUN/Creatinine Ratio 9.2 L Glucose 94 Calcium 9.2 SARS-CoV-2 RNA (GIOVANNY) Pending SARS-CoV-2, RNA, NAAT NEGATIVE (1) Suicide attempt by other psychotropic drug overdose Encounter type: initial encounter Qualified Code(s): T43.8X2A - Poisoning by other psychotropic drugs, intentional self-harm, initial encounter
--- NOTE | 2023-09-23 19:09 | Discharge Summary ---
Date of Service September 23, 2023 Admission HPI Per Admitting Provider Gabrielle is a 28-year-old male with PMH of anxiety, depression, and prior suicide attempt. She presented for an intentional Wellbutrin overdose on 09/21. She reportedly took 23 tablets of her 300 mg Wellbutrin (total 6900 mg) at 1030 on the morning of 09/21 and punched her right hand against a wall. Follow overdose, she reportedly had 1 seizure prior to EMS arrival with 1 episode of emesis. No hx of prior seizures. She reports that she does not know what triggered her to go off this morning; she reports a hx of explosive behaviors, and is not sure what triggered her to take the remainder of her Wellbutrin, and punch her hands against the wall. Patient reports that this is her second suicide attempt; the first was 6 months ago on trazodone, but she reportedly threw up the trazodone after ingestion. She denies ingesting any other drugs. She endorses marijuana use, tobacco cigarette smoking; 1 PPD; and occasionally vaping. She denies alcohol use and recreational drug use. She denies nausea, and pain in her right hand at present. She reports that she urinated once in the ED without difficulty. She reports that she lives with her and 2 dogs. She reports that she used to have firearms in the house, but after speaking with her , and telling him that she is not okay, her brought the firearms to his parent's house. Vital stable at time of admission. ED course: Lorazepam 0.5 mg IV NSS 1000 mL bolus x 2 ROS: Patient endorses nausea (which has resolved). Patient denies headache, fevers, chills, night sweats, chest pain, SOB, abdominal pain, urinary s/s, or numbness/tingling going down her legs. Principal Diagnosis He was alert and with medication overdose Discharge Exam General: no acute distress; non-toxic appearing; well-nourished; cooperative HEENT: normocephalic, atraumatic; no scleral icterus; PERRLA w/ EOMs intact; moist mucus membrane; vision and hearing grossly intact Neck: supple; no lymphadenopathy; trachea midline Skin: warm, dry without signs of tenting; no cyanosis; no rashes, bruising, lesions, or erythema noted CV: chest wall NTP; RRR; S1/S2 normal; no murmurs/rubs/gallops; pulses intact and symmetric at radial, DP, and PT Lungs: no acute respiratory distress; symmetrical chest wall expansion; clear breath sounds across all lung bryant w/o adventitious sounds; no wheezing ABD: Soft, NTP; BS present; no rebound/guarding; no ascites; no distention; negative CVA tenderness MSK: no tics or fasciculations; no edema noted in the LEs b/l, nonerythematous; right hand mildly swollen at the fifth digit MCP, with mild erythema Neuro: A&Ox3; normal mood and affect; fluent speech; no focal deficits; sensation grossly intact Psychiatric Orientation: alert and oriented x 3 Apperance: appropriately dressed and appropriately groomed Eye Contact: + fair eye contact Motor Behavior: no abnormal motor movements Speech: + abnormal rate/rhythm/volume of speech Affect: + depressed affect Mood: + depressed mood Thought Process: linear/logical thought process Thought Content: reality based without delusions Suicidal Thoughts: denies suicidal thoughts Homicidal Thoughts: denies homicidal thoughts Hallucinations: no auditory hallucinations and no visual hallucinations Cognition: attention grossly intact and language grossly intact Estimated Intelligence: consistent with education level Insight: + limited insight Judgment: + limited judgement Discharge Data Allergies Allergy/AdvReac Type Severity Reaction Status Date / Time No Known Allergies Allergy Verified 08/12/23 10:52 Consultations 09/21/23 21:02 ED Decision to Admit Stat 09/21/23 22:40 Consult Psychiatry Routine Ordered Studies 09/21/23 18:19 CT head/brain wo con Stat Hospital Course (1) Intentional overdose: Suicide attempt; patient intentionally took Wellbutrin 300mg p.o. x 23 tablets (6900mg total) the morning of 09/21 Patient then experienced a seizure at home, and vomited No prior hx of seizures Hx of suicide attempt on trazodone 6 months ago EKG on arrival showed NSR at 87 bpm; QTc 471 Glucose at 166 on arrival Repeat EKGs ordered Head CT NAF Urine test negative Tox screen positive for marijuana and MDMA (expected with Wellbutrin); negative for alcohol, acetaminophen, or salicylates Seizure precautions 1:1 suicide precations Lorazepam 2 mg IV q5m x 2 max doses as needed for seizures lasting >3min Monitor electrolytes; maintain K>4, Mag>2 Magnesium sulfate x 2g given in the ED; K rider 10mEq Psychiatry consulted, psychiatry recommended inpatient admission to psychiatric unit, patient after 24 hours is medically stable to be discharged, no seizure activity no significant arrhythmia. (2) Depression: Taking Wellbutrin, venlafaxine (3) Tobacco use: Current everyday tobacco cigarette smoker; 1 PPD Patient also endorses vaping and using marijuana (4) Right hand pain: Patient reportedly punched a wall following overdose Denies R hand pain at time of admission Right hand x-ray unremarkable Plan Admitted to the psychiatric [facility] Total Time Total Time Spent Total Time Spent (In Minutes): 45 minutes Discharge Plan Discharge Items Patient Disposition: Transfer Behavioral Health Fac Reason For Visit: INTENTIONAL OD ON WELLBUTRIN W/ SUBSEQUENT SEIZURE Activity: Resume your previous activity Lifting: Gradually increase as tolerated Bathing: No limitations Sexual Activity: When tolerated Driving/Machine Use: No limitations Weightbearing: Full weightbearing Non-emergency contact: Psychiatrist Call non-emergency contact if: you have any medication questions Follow-up/Referrals: Amie Cole MD [Primary Care Provider] - Diet: Regular Addtl Attending Provider Instructions: Please follow with psychiatry as you instructed Pending Studies at Discharge: No Stand-Alone Forms: My [facility] Medications and DC Order Prescriptions: Continued venlafaxine [Effexor XR] 150 mg capsule,extended release 24hr 150 mg PO QAM Qty: 30 2RF bupropion HCl [Wellbutrin XL] 300 mg tablet extended release 24 hr 300 mg PO QAM Qty: 30 2RF Discharge Orders: Discharge Order (Routine); Ordered 09/23/23 Ordered By: Kuldeep Tsang Admission Data Admit Date/Time: 09/21/23 22:03 Attending Provider: Kuldeep Tsang Admit Provider: Joe Anderson Primary Care Provider: Amie Cole Other Providers: Joe Anderson; Lynda Duffy; Jamilah Elizalde; Jerome Lovelace Coding Level of Care Code 89086 IN/OBS DISCH 30 MIN/LESS Diagnoses Intentional overdose T50.902A Depression F32.A Tobacco use Z72.0 Right hand pain M79.641
[2023-09-27 14:33] LABS: Amphetamine Urine, Confirm NEGATIVE ng/mL (<250); MDA negative; MDEA negative; MDMA (Ecstasy) Urine, Confirm negative; Marijuana Quant, GCMS Urine 476 ng/mL (<5); Methamphetamine, Ur Confirm NEGATIVE ng/mL (<250)
== END 2023-09-23 18:01 | DRG 918 ==
LOC: ED 17:34 → EDINP 22:03 → SUATTDRO 22:03 → EDINP 09-23 19:24

== ENCOUNTER 2023-09-23 14:14 | Inpatient (IN) ==
[2023-09-23] MEDS ORDERED: NICOTINE POLACRILEX 2 MG GUM MT PRN (17:58)
[2023-09-23] MEDS ORDERED: SODIUM CHLORIDE 0.65% NA SOLN 45 ML (OCEAN) PRN (17:58)
[2023-09-23] MEDS ORDERED: ALUMINUM/MAGNESIUM SUSP 30 ML UDC PO PRN (17:58)
[2023-09-23] MEDS ORDERED: MAGNESIUM HYDROXIDE SUSP 30 ML UDC PO PRN (17:58)
[2023-09-23] MEDS ORDERED: ACETAMINOPHEN 325 MG TAB PO PRN (17:58)
[2023-09-23] MEDS ORDERED: BISMUTH SUBSALICYLATE LIQD 236 ML PO PRN (17:58)
[2023-09-23] MEDS ORDERED: hydrOXYzine HCl 25 MG TAB PO PRN ×2 (17:58)
[2023-09-23] MEDS ORDERED: IBUPROFEN 600 MG TAB PO PRN (18:00)
[2023-09-23] MEDS ORDERED: LORazepam 1 MG TAB PO PRN (18:00)
[2023-09-23] MEDS ORDERED: NICOTINE 21 MG/24 HR TDSY TD ONE (19:47)
[2023-09-24] MEDS ORDERED: NICOTINE 21 MG/24 HR TDSY TD SCH (09:00)
--- NOTE | 2023-09-24 15:10 | History & Physical ---
Date of Service September 24, 2023 Impression / Recommendations Impression 28 yo female with hx of prior suicide attempt (newly disclosed), remote hx of opiate abuse, recent escalation to punching wells, likely complex trauma hx presents s/p Wellbutrin OD with seizure. Effexor XR has been held since OD and denies discontinuation syndrome. (1) Depression: (2) Anxiety: (3) Intentional overdose: Plan patient is requesting discharge, she has denied SI throughout her ED course and exhibited no evidence of psychosis or akin interfering with her medical decision making. is comfortable with and prefers her return home and will provide additional supervision. Meds and guns are secured, will have access only to a weekly pill minder and leaving with only a small supply or prn Ativan for emergencies. She contracts not to drive or combine Ativan with alcohol or other sedating substances. Inventory Assets Strengths: loves animals, meaningful employment Needs: improve coping skills, aftercare providers. Suicide Risk Level Suicide Risk Level Comments: Suicide risk at discharge is deemed low as the patient is no longer requiring 24-hr monitoring, has a safety plan, and is free of suicidal ideation at discharge. Risk Factors Assessment : Yes Do You Have Access To A Gun?: No ( secured/removed) Mental Health Diagnoses: Yes Previous Attempt: Yes Previous Psychiatric Hospitalization: No Protective Factors Assessment : Yes Employed: Yes Psychiatric History Identifying Data VIDA CRAWFORD is a 28-year-old F who currently lives in [place], presented to ED on 09/21 and admitted medically following Wellbutrin OD and seizure. She was admitted on 09/23/23 18:05 on a 201 voluntary commitment for same. Chief Complaint "I just feel so much less agitated unmedicated". History of Present Illness as per initial consultation while boarding in ED: Patient currently lying in dark room with significant N so didn't elaborate much. Confirmed hx as generally outlined in chart/liaison. Patient admitted taking 23 tabs of 300 mg Wellbutrin and remains ambivalent about her attempt. She also punched a wall. She told liaison took OD of trazodone approximately 6 months ago and didn't tell/seek treatment. She feels overall she has done well on Effexor XR and is aware it is currently held due to her OD and abrupt discontinuation/missed doses can result in discontinuation syndrome. reportedly taking his firearms to a family members house and is supportive of treatment. alludes to "drama" within family, kasey doesn't speak with mother and sister reportedly bipolar and/or in recovery. 7 sibs total and no contact with any. trauma hx of "sexual emotional" no outpatient services, no inpatient care hx occasional MJ, MJ use daily, hx of opiod abuse 10 or more years ago seems to be minimizing, did score 9 on PHQ-9 with 1 on #9. Main symptoms are feeling down and having little energy. The patient was medically cleared yesterday afternoon and remained resistant to inpatient but did sign 201 to allow for admission for overnight support pending additional safety and aftercare planning. Past Psychiatric History Current Psychiatric Diagnosis: MDD Outpatient Services: none Previous Psych Admissions: none Do You Have Access To A Gun?: No ( secured/removed) History of Previous Suicide Attempt: Yes Describe Attempts in the Past: see HPI Allergies Allergy/AdvReac Type Severity Reaction Status Date / Time No Known Allergies Allergy Verified 08/12/23 10:52 Home Medications Medication Instructions Recorded Confirmed Type lorazepam 1 mg tablet 1 mg PO Q8 PRN anxiety #7 tabs 09/24/23 Rx Family History Family History of: Depression, Anxiety and Bipolar Alcohol History Hx of Alcohol Use Over the Past 12 Months: Yes AUDIT Total Score: 1 Smoking Use Have You Smoked or Used Tobacco Products in the Last 30 Days: Yes tobacco type: cigarettes Smoking Status: Current every day smoker Smoking packs per day: 1 Substance History Hx of Prescription Med Misuse Over the Past 12 Months: Yes (OD on Wellbutrin) Hx of Over the Counter Med Misuse Over the Past 12 Months: No Hx of Inhalent Misuse Over the Past 12 Months: No Hx of Organic Substance Use Over the Past 12 Months: Yes (Marijuana) Hx of Illegal Substances/Street Drug Use Over Past 12 Months: Yes (Marijuana) Problems as a Result of Past Substance Use: None Identified Problems as a Result of Past Substance Use Comments: Opiod addiction sober for 10 years Personal History Living Arrangements: Home () Highest Grade Completed: High School 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 () Marital Status: Number Of Children: 0 Beliefs That Will Affect Care: None Current Legal Problems: No Hx Traumatic Life Events: Yes Patient History Medical History Intentional overdose Strain of muscle, fascia and tendon of lower back, initial encounter Open wnd knee/leg/ankle Surgical History No pertinent past surgical history Family History Sister Anxiety Bipolar disorder Grandmother Breast cancer Mother Cervical cancer Denies family history of Ovarian cancer Prostate cancer Myocardial infarction Colorectal cancer Social History Smoking Status: Current every day smoker Tobacco Type: Cigarettes Age Started Using Tobacco: 11; Second Hand Exposure: No; Do You Dip or Chew Tobacco: No; Hx Alcohol Use: Yes Alcohol type: hard liquor Hx Substance Use: Yes Non-Prescribed Medications: Marijuana Preferred Language: Thai Communication Ability: Effective Accounts Payables Clerk Required: No Beliefs That Will Affect Care: None marital status: Current Living Situation: Family 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 How many Children do You have: 0 Feels Safe at Home: Yes Childhood Exposure to Second-Hand Smoke: Yes Diet: regular caffeine: Yes (coffee, tea, and soda ) Dental Care, Regularly: No Physical Activity Frequency: 1-2 Times per Week Seatbelt Use: always Sunscreen Use: No Gender Identity: Female Assistive Devices: None Review of Systems Review of Systems: All systems reviewed & are unremarkable except as noted in HPI & below Physical Exam Psychiatric: Orientation: alert and oriented x 3 Apperance: appropriately dressed and appropriately groomed Eye Contact: + fair eye contact Motor Behavior: no abnormal motor movements Speech: + abnormal rate/rhythm/volume of speech Affect: euthymic affect Mood: no depressed mood and no anxious mood Thought Process: linear/logical thought process Thought Content: reality based without delusions Suicidal Thoughts: denies suicidal thoughts Homicidal Thoughts: denies homicidal thoughts Hallucinations: no auditory hallucinations and no visual hallucinations Cognition: attention grossly intact and language grossly intact Estimated Intelligence: consistent with education level Insight: + fair insight (improved) Vital Signs (Past 24 Hours): Last Vital Signs Temp 36.6 C 09/24/23 11:06 Pulse 60 09/24/23 11:06 Resp 16 09/24/23 11:06 BP 132/90 09/24/23 11:06 O2 Del Method Room Air 12/06/23 18:23 Results & Data ([facility]) Laboratory Results see medical admission Current Inpatient Medications Current Inpatient Medications: Ativan 1 mg q8 prn and standard admission orders
--- NOTE | 2023-09-24 15:21 | Discharge Summary ---
Date of Service September 24, 2023 History of Present Illness as per initial consultation while boarding in ED: Patient currently lying in dark room with significant N so didn't elaborate much. Confirmed hx as generally outlined in chart/liaison. Patient admitted taking 23 tabs of 300 mg Wellbutrin and remains ambivalent about her attempt. She also punched a wall. She told liaison took OD of trazodone approximately 6 months ago and didn't tell/seek treatment. She feels overall she has done well on Effexor XR and is aware it is currently held due to her OD and abrupt discontinuation/missed doses can result in discontinuation syndrome. reportedly taking his firearms to a family members house and is supportive of treatment. alludes to "drama" within family, adamant doesn't speak with mother and sister reportedly bipolar and/or in recovery. 7 sibs total and no contact with any. tra dieudonne hx of "sexual emotional" no outpatient services, no inpatient care hx occasional MJ, MJ use daily, hx of opiod abuse 10 or more years ago seems to be minimizing, did score 9 on PHQ-9 with 1 on #9. Main symptoms are feeling down and having little energy. The patient was medically cleared yesterday afternoon and remained resistant to inpatient but did sign 201 to allow for admission for overnight support pending additional safety and aftercare planning. Physical Exam Psychiatric Orientation: alert and oriented x 3 Apperance: appropriately dressed and appropriately groomed Eye Contact: + fair eye contact Motor Behavior: no abnormal motor movements Speech: normal rate/rhythm/volume of speech Affect: euthymic affect Mood: no depressed mood and no anxious mood Thought Process: linear/logical thought process Thought Content: reality based without delusions Suicidal Thoughts: denies suicidal thoughts Homicidal Thoughts: denies homicidal thoughts Hallucinations: no auditory hallucinations and no visual hallucinations Cognition: attention grossly intact and language grossly intact Estimated Intelligence: consistent with education level Insight: + fair insight (improved) Vital Signs (Past 24 Hours) Last Vital Signs Temp 36.6 C 09/24/23 11:06 Pulse 60 09/24/23 11:06 Resp 16 09/24/23 11:06 BP 132/90 09/24/23 11:06 O2 Del Method Room Air 09/23/23 18:23 Principal Diagnosis depression Psychiatric Data See daily stay summary. In short, the patient was medically cleared after a less than ideal stay in ED rather than med floor due to need for 1-on-1/house census. She did not want inpatient hospitalization and involuntary commitment seemed counter-therapeutic when has family support and viable safety plan. The patient was cooperative with care during her overnight stay. She declines to resume Effexor XR for further taper as feels better off of medications overall and understands that Wellbutrin should not be taken in future due to effects on seizure threshhold. Although she does not meet full criteria for bipolar disorder, there is a family hx and she was likely having some paradoxical agitation with 2 antidepressants. A safety plan was completed prior to disc harge. Day of Discharge Assessment Today the patient voices readiness for discharge. They note improvement in mood and deny thoughts to harm self or others. Thoughts remain organized. There is no evidence of psychosis. They agree to take mediations as prescribed and keep follow-up appointments. They are stable for discharge to outpatient level of care. Transition of Care Transition Of Care Record: was reviewed with the patient Advance Directives Advance Directives Information Provided: Yes Advance Directives: No Mental Health Advance Directive: No Advance Directives on File: No Living Will: No Power of Dredge Worker: No Advance Directives Reason:: Declines as Mental Health Visit. Suicide Risk Level Suicide Risk Level Comments: Suicide risk at discharge is deemed low as the patient is no longer requiring 24-hr monitoring, has a safety plan, and is free of suicidal ideation at discharge. Risk Factors Assessment : Yes Do You Have Access To A Gun?: No ( secured/removed) Mental Health Diagnoses: Yes Previous Attempt: Yes Previous Psychiatric Hospitalization: No Protective Factors Assessment : Yes Employed: Yes Tobacco Cessation at Discharge Tobacco Cessation Medication Prescribed at Discharge: Offered & Pt Refused Total Time Total Time Spent: Greater Than 30 Minutes (combined with admission 58 min.) Hospital Course (1) Depression: (2) Anxiety: (3) Intentional overdose: Plan patient is requesting discharge, she has denied SI throughout her ED course and exhibited no evidence of psychosis or akin interfering with her medical decision making. is comfortable with and prefers her return home and will provide additional supervision. Meds and guns are secured, will have access only to a weekly pill minder and leaving with only a small supply or prn Ativan for emergencies. She contracts not to drive or combine Ativan with alcohol or other sedating substances. Mental Health & Subst Abuse Tx Psychiatrist Name of Psychiatrist: Janette Palmer (Janny Florez) *Bring insurance card Psychiatrist's Date Of Appointment With Psychiatric Provider: 10/15/23 Time of Appointment with Psychiatrist: 8:30 AM Psychiatric Appointment Comment: [address] [place] [address] Psychiatrist Release of Information: Obtained, Reviewed and Signed Therapist Name of Therapist: Anthony Sherwood Therapist's Date of Therapist Appointment: 09/25/2023 Time of Therapist Appointment: 10:30am Therapy Appointment Comment: [address] , [place] [address] Therapist Release of Information: Obtained, Reviewed and Signed Post Discharge Appointments Primary Care Physician Name Of Family Doctor/PCP: Fatmata Cole [facility] Date of Future Appointment with PCP: 09/30/23 Time of Appointment with PCP: 9:30 Provider Appointment Comment: [address], [place] [address] Smoking Cessation Counseling Tobacco Cessation Medication Prescribed at Discharge: Offered & Pt Refused Contact Information Discharge Discharge Address: [address] [place] [address] Contact Information Comment: [email or web address] Discharge Plan Discharge Items Patient Disposition: Home - Self-Care Reason For Visit: MDD Discharge Diagnosis: depressive disorder Activity: Resume your previous activity Non-emergency contact: Primary Care Provider, Psychiatrist and Therapist Call non-emergency contact if: you have any medication questions and your symptoms worsen Follow-up/Referrals: Amie Cole MD [Primary Care Provider] - Diet: Regular Addtl Attending Provider Instructions: SPECIAL CARE INSTRUCTIONS: 1. Follow through with your scheduled aftercare appointments. If unable to keep an appointment, please call to reschedule. 2. Take your medication only as prescribed. Medication should not be changed or stopped without the approval of your doctor. In the event of worsening symptoms or concerns about side effects, contact your doctor immediately. 3. Utilize new healthy coping skills, anger management skills, and stress management skills learned during your hospitalization. Journal feelings and process them with a support person. Identify stressors or situations that may result in relapse, deterioration or inappropriate behaviors and develop a plan to deal with those issues. 4. If your coping skills are ineffective and you are in crisis, contact your outpatient providers for direction. If unable to reach your providers, please call the [facility] CRISIS LINE AT , go to the [facility] walk-in center at [address], [address], [place], or go to the closest Emergency Room. 5. Avoid alcohol and un-prescribed drugs. 6. You have been provided with the Mental Health Advance Directives Pamphlet for your review. 7. Your condition is stable for discharge to outpatient level of care, but recovery is an ongoing process. Ifthoughts to harm yourself or others return, follow the safety plan developed during your stay. Planning for a safe return home includes securing weapons. Our treatment team recommends weaponsbe removed from the home until your outpatient provider reassesses your progress. In rare cases where the items themselvescannot be removed, guns and ammunitionshould be secured separatelyand keys stored by a reliable personoutside of the home. If you were admitted on an involuntary commitment, the police or other legal authorities may be involved in this process. AFTERCARE APPOINTMENTS: * Please call your insurance company prior to your scheduled appointment to confirm your aftercare providers are covered. Take your insurance information to your appointments. WHO TO CALL AND WHEN: Medical Emergencies: For questions or emergencies related to your hospital stay, please contact the Inpatient Behavioral Health Unit at [phone]. A protective services case worker is on-call 11/05 for the Behavioral Health Unit for emergencies At any time you feel your situation is an emergency, you may also call 911 immediately. Pending Studies at Discharge: No Stand-Alone Forms: [facility] [employer], Smoking Cessation Medications and DC Order Prescriptions: New lorazepam 1 mg Tablet 1 mg PO Q8 PRN (Reason: anxiety) Qty: 7 0RF Discontinued venlafaxine [Effexor XR] 150 mg capsule,extended release 24hr 150 mg PO QAM Qty: 30 2RF bupropion HCl [Wellbutrin XL] 300 mg tablet extended release 24 hr 300 mg PO QAM Qty: 30 2RF Discharge Orders: Discharge Order (Routine); Ordered 09/24/23 Ordered By: Jamilah Elizalde Admission Data Admit Date/Time: 09/23/23 18:05 Attending Provider: Jamilah Elizalde Admit Provider: Jamilah Elizalde Primary Care Provider: Amie Cole Other Interventions: Discharge Summary Assessment (RN) Last Done: 09/24/23 11:06 PSY Interdisciplinary Discharge Planning Last Done: 09/24/23 11:07 Coding Level of Care Code 87444 D/C day mgmt > 30 min Diagnoses Depression F32.A Anxiety F41.9 Intentional overdose T50.902A
== END 2023-09-24 11:38 | disposition home or self-care (01) | DRG 881 ==
LOC: 3S 18:05